=== PATIENT | female | born 1970 | race Caucasian/White ===

== ENCOUNTER 2022-08-26 21:05 | Emergency (ER) | payer MEDICAID ==
[~2022-08-26 21:05] MED LIST: CITA10TA71 PO
== END 2022-08-26 22:25 | disposition left against medical advice (07) ==
LOC: ER 21:05
DX: R21 Rash and other nonspecific skin eruption (principal); Z53.21 Procedure and treatment not carried out due to patient leaving prior to being seen by health care provider